=== PATIENT | female | born 1975 | race Caucasian/White ===

== ENCOUNTER → 2022-12-12 | Day surgery (SDC) | payer OTHER ==
[~2022-12-12] MED LIST: ACETAMINOPHEN/CODEINE 300MG - 30MG TAB ONE; ACETAMINOPHEN/CODEINE 300MG - 30MG TAB PO ONE; DEXAMETHASONE SOD PHOS INJ 4 MG/ML SDV ONE; FENTANYL CITRATE/PF 100MCG/2 ML INJ ONE; GLYCOPYRROLATE INJ 0.2 MG/ML VIAL ONE; LIDOCAINE 1% W/EPINEPHRINE 20 ML VIAL ONE; LIDOCAINE HCL 2% LOCAL INJ 5 ML SDV VIAL INJ ONE; MIDAZOLAM HCL 2 MG/2 ML VIAL ONE; NEOSTIGMINE 1 MG/ML 10ML VIAL ONE; ONDANSETRON HCL INJ 2MG/ML 2ML 2 MG/ML VIAL ONE; POVIDONE IODINE 0.05% 0.05 % ML PO ONE; PROPOFOL IV EMULSION 10 MG/ML 20 ML VIAL ONE; ROCURONIUM BROMIDE 10 MG/ML 5ML VIAL IV ONE; SEVOFLURANE INHAL SOLN 250 ML PEN BTL ONE; SUCCINYLCHOLINE CHLORIDE 20 MG/ML 10ML VIAL ONE
[2022-12-12 14:35] VITALS: BP 122/74
== END | disposition home or self-care (01) ==
LOC: OR 08:58
PROVIDERS: ATTEND Otolaryngology Otolaryngology/Facial Plastic Surgery
DX: E04.2 Nontoxic multinodular goiter (principal); Z88.6 Allergy status to analgesic agent
CPT/HCPCS: 60220; 81025; 88307; A4467; C1713; J0330; J1100; J2001; J2250; J2405; J2704; J2710; J3010; 88304